=== PATIENT | male | born 1995 | race Two or more races ===

== ENCOUNTER 2022-07-17 14:57 | Emergency (ER) | payer OTHER ==
[~2022-07-17] VITALS: Ht 182.9 cm; Wt 61.4 kg
[2022-07-17 15:06] VITALS: BP 135/54
[2022-07-17] MEDS ORDERED: DIAZEPAM 5 MG TABLET PO ONE (16:15)
[2022-07-17] MEDS ORDERED: LIDOCAINE 5% PATCH TOP SCH (16:15)
[2022-07-17] MEDS ORDERED: KETOROLAC 60MG/2ML VIAL IM ONE (16:15)
[2022-07-17] MEDS ORDERED: IBUP-2029 MT (16:27)
[2022-07-17] MEDS ORDERED: LIDO700A30 TP (16:27)
== END 2022-07-17 17:22 | disposition home or self-care (01) ==
LOC: ER 14:57
DX: M54.9 Dorsalgia, unspecified (principal); G89.29 Other chronic pain; J45.909 Unspecified asthma, uncomplicated; Z76.0 Encounter for issue of repeat prescription; Z88.0 Allergy status to penicillin
CPT/HCPCS: 96372; 99283; J1885